=== PATIENT | female | born 1950 | race Hispanic/Latino ===

== ENCOUNTER 2018-03-29 19:51 | Emergency (ER) | payer OTHER ==
[~2018-03-29] VITALS: Ht 152.4 cm; Wt 54.4 kg
[2018-03-29] MEDS ORDERED: ONDANSETRON HCL 4 MG ORAL DISINTEGRATING TAB SL ONE (20:45)
[2018-03-29] MEDS ORDERED: MORPHINE SULFATE INJ 4 MG/ML INJ IV ONE (20:45)
[2018-03-29] MEDS ORDERED: DIPHTH/TETANUS/ACEL. PERTUSSIS 0.5 ML SYR IM ONE (20:45)
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
[2018-03-29] MEDS ORDERED: TYLENOL WITH C1 EACH PO (22:56)
[2018-03-29] MEDS ORDERED: ROBAXIN-750750 MG PO (22:56)
[2018-03-29] MEDS ORDERED: PROMETHAZINE HCL (IM) 25 MG/ML VIAL IM ONE (23:15)
== END 2018-03-29 23:13 | disposition home or self-care (01) ==
LOC: FSED 19:51
DX: M54.2 Cervicalgia (principal); S20.212A Contusion of left front wall of thorax, initial encounter; S30.1XXA Contusion of abdominal wall, initial encounter; S90.122A Contusion of left lesser toe(s) without damage to nail, initial encounter; S62.232A Other displaced fracture of base of first metacarpal bone, left hand, initial encounter for closed fracture; V43.62XA Car passenger injured in collision with other type car in traffic accident, initial encounter; Y92.488 Other paved roadways as the place of occurrence of the external cause; I10 Essential (primary) hypertension
CPT/HCPCS: 71250; 72125; 73090; 73110; 73130; 73630; 74176; 80053; 81003; 85025; 93005; 99284; J2270